=== PATIENT | male | born 1995 | race Caucasian/White ===

== ENCOUNTER → 2021-03-10 | Day surgery (SDC) | payer OTHER ==
[~2021-03-10] MED LIST: BELLADONNA/OPIUM 30 MG SUPP RC ONE; DEXAMETHASONE SOD PHOS INJ 4 MG/ML SDV ONE; FENTANYL CITRATE/PF 100MCG/2 ML INJ ONE; GENTAMICIN 80MG/NS 100 ML 200 ML IV ONE; IOPAMIDOL 300MG/ML 50ML INFUS..BTL IV ONE; LIDOCAINE HCL 2% LOCAL INJ 5 ML SDV VIAL INJ ONE; ONDANSETRON HCL INJ 2MG/ML 2ML 2 MG/ML VIAL ONE; PENICILLIN V P500 MG PO; POVIDONE IODINE 0.05% 0.05 % ML PO ONE; PROPOFOL IV EMULSION 10 MG/ML 20 ML VIAL ONE
[2021-03-10 13:11] VITALS: BP 140/79
== END | disposition home or self-care (01) ==
LOC: OR 09:47
PROVIDERS: ATTEND Urology
DX: N30.90 Cystitis, unspecified without hematuria (principal); N34.2 Other urethritis; N32.89 Other specified disorders of bladder; F17.290 Nicotine dependence, other tobacco product, uncomplicated; Z01.812 Encounter for preprocedural laboratory examination; Z20.822 Contact with and (suspected) exposure to COVID-19; Z68.42 Body mass index [BMI] 45.0-49.9, adult
CPT/HCPCS: 52260; 74420; C1758; C1769; J1100; J1580; J2001; J2405; J2704; J3010; Q9967; U0002

== ENCOUNTER → 2024-12-06 | Day surgery (SDC) | payer OTHER ==
[2024-12-05 10:53] LABS: BASOPHILS % 0.8 % (0.0-1.0); EOSINOPHILS % 1.8 % (0.0-6.0); LYMPHOCYTES % 36.8 % (18.0-39.1); MONOCYTES % 7.0 % (4.4-11.3); NEUTROPHILS % 53.0 % (38.7-80.0); RED CELL DISTRIBUTION WIDTH 13.2 % (11.7-14.4)
[2024-12-05 11:26] LABS: EST GLOMERULAR FILTRATION RATE 135.0 ML/MIN (>=60)
[~2024-12-06] MED LIST changes: +ACETAMINOPHEN 1000 MG/100 ML 100 ML IV ONE; +ALPRAZOLAM0.5 M1 PO; -BELLADONNA/OPIUM 30 MG SUPP RC ONE; +CLEOCIN HCL300 MG PO; +ELIQUIS5 MG PO; +EPHEDRINE SULFATE INJ 50 MG/ML VIAL ONE; +GEMTESA75 MG PO; -GENTAMICIN 80MG/NS 100 ML 200 ML IV ONE; -IOPAMIDOL 300MG/ML 50ML INFUS..BTL IV ONE; +METHOCARBAMOL500 MG PO; +MIDAZOLAM HCL 2 MG/2 ML VIAL ONE; +NEURONTIN400 MG PO; -POVIDONE IODINE 0.05% 0.05 % ML PO ONE; +SEVOFLURANE INHAL SOLN 250 ML PEN BTL ONE; +TIZANIDINE HCL4 M1 PO; +TYLENOL #3 PO; +ULTRAM 50MG50 MG PO; +VIAGRA50 MG PO; +ZYRTEC10 M3 PO
[2024-12-06] MEDS: CEFTRIAXONE 1 GM VIAL ONE (06:51)
[2024-12-06] MEDS: SODIUM CHLORIDE 0.9% 1000ML 1,000 ML ONE (06:52)
[2024-12-06 07:57] VITALS: TEMP 97.5
[2024-12-06 09:00] VITALS: BP 120/70; PULSE 62; RESP 15; O2SAT 100
== END | disposition home or self-care (01) ==
LOC: OR 05:26
PROVIDERS: ATTEND Urology
DX: N35.812 Other bulbous urethral stricture, male (principal); N30.30 Trigonitis without hematuria; N50.0 Atrophy of testis; I86.1 Scrotal varices; N34.1 Nonspecific urethritis; N31.9 Neuromuscular dysfunction of bladder, unspecified; N45.1 Epididymitis; E66.9 Obesity, unspecified; Z01.810 Encounter for preprocedural cardiovascular examination; Z01.812 Encounter for preprocedural laboratory examination; Z79.02 Long term (current) use of antithrombotics/antiplatelets; Z79.899 Other long term (current) drug therapy; Z80.51 Family history of malignant neoplasm of kidney
CPT/HCPCS: 36415; 52005; 74420; 80048; 85025; 87086; 87186; 93005; C1758; J0131; J0696; J1100; J2003; J2250; J2405; J2704; J3010; J7030